=== PATIENT | female | born 1950 | race Hispanic/Latino ===

== ENCOUNTER 2017-03-06 09:40 | Outpatient (CLI) | payer MEDICARE ==
--- NOTE | 2017-03-06 13:46 | Cat Scan Report ---
CT ABDOMEN AND PELVIS WITHOUT AND WITH CONTRAST: 03/06/17 09:40:00 CLINICAL: Abdominal pain. COMPARISON: The TECHNIQUE: Volumetric acquisition and 1.25 millimeter scan reconstructions without contrast and after the uneventful intravenous injection of 100 cc Omnipaque 300. Consent was obtained prior to the administration of contrast. Oral contrast was also given. FINDINGS: Abdomen: Clear lung bases. Normal liver and bile ducts status post cholecystectomy. Normal stomach, duodenum, pancreas and spleen. The right kidney measures 10.5 cm in length and the left kidney measures 10.0 cm in length. A 2 mm nonobstructive left lower pole renal calculus. The renal collecting systems and ureters are nondilated. No renal mass or cyst. Normal adrenal glands. Mild calcification of the abdominal aorta. Normal inferior vena cava. The small bowel is normal. Mild diverticulosis of the right, left and sigmoid colon but no diverticulitis. There is a large volume of stool throughout the colon. An appendix is not identified. No ascites, mass or lymphadenopathy. No pneumoperitoneum. Pelvis: Absence of the uterus and a normal vaginal cuff. Normal urinary bladder and rectum. Ovaries are not identified. No adnexal mass or free fluid. Bilateral benign-appearing external iliac lymph nodes and inguinal lymph nodes with fatty almas. Phleboliths in the pelvis. Bone windows demonstrate no suspicious bone lesion. Degenerative disc disease with vacuum disc phenomenon at L4-5 and L5-S1. IMPRESSION:1. Status post cholecystectomy. 2. A 2 mm nonobstructive left lower pole renal calculus. 3. Mild diverticulosis but no diverticulitis. 4. Status post hysterectomy.
== END 2017-03-06 09:41 | disposition home or self-care (01) ==
LOC: SPVIMAG 09:40
PROVIDERS: ATTEND Internal Medicine
DX: N20.0 Calculus of kidney (principal); K57.30 Diverticulosis of large intestine without perforation or abscess without bleeding; I70.0 Atherosclerosis of aorta; I87.8 Other specified disorders of veins; M51.37 Other intervertebral disc degeneration, lumbosacral region; Z90.49 Acquired absence of other specified parts of digestive tract; Z90.710 Acquired absence of both cervix and uterus
CPT/HCPCS: 74178; Q9967